=== PATIENT | male | born 1980 | race Caucasian/White ===

== ENCOUNTER 2016-12-10 16:28 | Emergency (ER) | payer MEDICAID ==
[2016-12-10 19:32] LABS: CARBON DIOXIDE 27.5 mmol/L (21-32); CHLORIDE SERUM 102 mmol/L (98-107); CREATININE SERUM 0.9 mg/dL (0.7-1.3); GFR1 > 60 mL/min; GLUCOSE SERUM 109 mg/dL (74-106); POTASSIUM SERUM 3.8 mmol/L (3.5-5.1); SODIUM SERUM 141 mmol/L (136-145)
[2016-12-10 19:37] LABS: ALBUMIN 4.1 g/dL (3.4-5.0); ALKALINE PHOSPHATASE 65 U/L (46-116); ALT/SGPT 24 U/L (16-63); AST/SGOT 13 U/L (15-37); BILIRUBIN TOTAL 1.61 mg/dL (0.20-1.00); TOTAL PROTEIN, SERUM 6.9 g/dL (6.4-8.2)
[2016-12-10 20:20] LABS: BASOPHIL % 0.4 % (0-2); PLATELET COUNT 213 x10^3mcL (130-400)
[2016-12-10 20:48] LABS: AMPHETAMINE QUAL UR NONE DETECTED (NEG <=1000)
[2016-12-10 21:42] VITALS: BP 106/66
== END 2016-12-10 21:42 | disposition home or self-care (01) ==
LOC: ED 16:28
PROVIDERS: Emergency Medicine
DX: R10.84 Generalized abdominal pain (principal); M54.9 Dorsalgia, unspecified; Z79.899 Other long term (current) drug therapy
CPT/HCPCS: J0780; J1885; J2405; J3010; J7030

== ENCOUNTER 2017-08-20 20:13 | Emergency (ER) | payer MEDICAID ==
[~2017-08-20] VITALS: Ht 167.6 cm; Wt 61.2 kg
[2017-08-20 20:43] VITALS: Ht 167.6 cm; Wt 61.2 kg
[2017-08-21 00:04] LABS: BASOPHIL % 0.5 % (0-2); PLATELET COUNT 233 x10^3mcL (130-400); RED CELL DISTRIBUTION WIDTH 14.1 % (11.5-14.5)
[2017-08-21 00:14] LABS: CALCIUM 9.5 mg/dL (8.5-10.1); CARBON DIOXIDE 26.4 mmol/L (21-32); CHLORIDE SERUM 102 mmol/L (98-107); GFR1 > 60 mL/min; GLUCOSE SERUM 118 mg/dL (74-106); SODIUM SERUM 136 mmol/L (136-145)
[2017-08-21 00:18] LABS: ALBUMIN 4.2 g/dL (3.4-5.0); ALKALINE PHOSPHATASE 73 U/L (46-116); ALT/SGPT 34 U/L (16-63); AST/SGOT 19 U/L (15-37); BILIRUBIN TOTAL 0.6 mg/dL (0.20-1.00); LIPASE 76 IU/L (73-393); TOTAL PROTEIN, SERUM 7.6 g/dL (6.4-8.2)
[2017-08-21 04:37] VITALS: BP 128/72
== END 2017-08-21 04:37 | disposition home or self-care (01) ==
LOC: ED 20:13
PROVIDERS: Emergency Medicine Emergency Medical Services
DX: G89.29 Other chronic pain (principal); R10.9 Unspecified abdominal pain
CPT/HCPCS: J2270; J7030; Q0162

== ENCOUNTER 2018-01-26 17:08 | Emergency (ER) | payer MEDICAID ==
[~2018-01-26] VITALS: Ht 170.2 cm; Wt 64.4 kg
[2018-01-26 17:22] VITALS: Ht 170.2 cm; Wt 64.4 kg
[2018-01-26 18:02] LABS: BASOPHIL % 1.1 % (0-2); PLATELET COUNT 222 x10^3mcL (130-400); RED CELL DISTRIBUTION WIDTH 13.9 % (11.5-14.5)
[2018-01-26 18:29] LABS: CALCIUM 9.3 mg/dL (8.5-10.1); CHLORIDE SERUM 105 mmol/L (98-107); CREATININE SERUM 0.8 mg/dL (0.7-1.3); GFR1 > 60 mL/min; GLUCOSE SERUM 103 mg/dL (74-106); POTASSIUM SERUM 3.5 mmol/L (3.5-5.1); SODIUM SERUM 138 mmol/L (136-145)
[2018-01-26 18:34] LABS: ALBUMIN 4.1 g/dL (3.4-5.0); ALKALINE PHOSPHATASE 68 U/L (46-116); ALT/SGPT 28 U/L (16-63); AST/SGOT 15 U/L (15-37); BILIRUBIN TOTAL 0.91 mg/dL (0.20-1.00); LIPASE 107 IU/L (73-393); TOTAL PROTEIN, SERUM 7.2 g/dL (6.4-8.2)
[2018-01-26 18:51] LABS: microscopic required? YES; urine erythrocyte 3+ (NEGATIVE)
[2018-01-26 19:01] LABS: AMPHETAMINE QUAL UR NONE DETECTED (See below)
[2018-01-26 19:18] VITALS: BP 105/56
== END 2018-01-26 19:48 | disposition home or self-care (01) ==
LOC: ED 17:08
PROVIDERS: Emergency Medicine
DX: R10.84 Generalized abdominal pain (principal); M54.9 Dorsalgia, unspecified; R31.29 Other microscopic hematuria; F12.90 Cannabis use, unspecified, uncomplicated; R11.10 Vomiting, unspecified; R19.7 Diarrhea, unspecified
CPT/HCPCS: J1885; J2405; J7030

== ENCOUNTER 2018-02-09 16:28 | Emergency (ER) | payer MEDICAID ==
[~2018-02-09] VITALS: Ht 167.6 cm; Wt 64.0 kg
[2018-02-09 16:35] VITALS: Ht 167.6 cm; Wt 64.0 kg
[2018-02-09 17:40] LABS: BASOPHIL % 0.1 % (0-2); PLATELET COUNT 227 x10^3mcL (130-400)
[2018-02-09 17:46] LABS: CALCIUM 9.5 mg/dL (8.5-10.1); CARBON DIOXIDE 23.6 mmol/L (21-32); CHLORIDE SERUM 105 mmol/L (98-107); CREATININE SERUM 1.1 mg/dL (0.7-1.3); GFR1 > 60 mL/min; GLUCOSE SERUM 147 mg/dL (74-106); POTASSIUM SERUM 3.9 mmol/L (3.5-5.1); SODIUM SERUM 142 mmol/L (136-145)
[2018-02-09 17:51] LABS: ALBUMIN 4.1 g/dL (3.4-5.0); ALKALINE PHOSPHATASE 70 U/L (46-116); ALT/SGPT 15 U/L (16-63); AST/SGOT 15 U/L (15-37); BILIRUBIN TOTAL 0.72 mg/dL (0.20-1.00); LIPASE 92 IU/L (73-393); TOTAL PROTEIN, SERUM 7.9 g/dL (6.4-8.2)
[2018-02-09 19:07] VITALS: BP 129/69
== END 2018-02-09 19:07 | disposition home or self-care (01) ==
LOC: ED 16:28
PROVIDERS: Emergency Medicine
DX: K29.70 Gastritis, unspecified, without bleeding (principal)
CPT/HCPCS: C9113; J1630; J2060; J2270; J2765; J7030